=== PATIENT | female | born 1935 | race Hispanic/Latino ===

== ENCOUNTER → 2020-11-19 | Outpatient (CLI) | payer OTHER | END | disposition home or self-care (01) | LOC: OIH 14:59 | PROVIDERS: ATTEND Family Medicine | DX: Z01.818 Encounter for other preprocedural examination (principal); I12.9 Hypertensive chronic kidney disease with stage 1 through stage 4 chronic kidney disease, or unspecified chronic kidney disease; I70.0 Atherosclerosis of aorta; M47.815 Spondylosis without myelopathy or radiculopathy, thoracolumbar region | CPT/HCPCS: 71046 ==

== ENCOUNTER → 2021-03-30 | Outpatient (CLI) | payer OTHER ==
[~2021-03-30] MED LIST: ASPI-1197 PO; CYCL30DR OP; FERR324T10 PO; HYDR-4060 PO; PRAV40TA3 PO
== END | disposition home or self-care (01) ==
LOC: OIH 11:45
PROVIDERS: ATTEND Family Medicine
DX: M25.472 Effusion, left ankle (principal); M85.872 Other specified disorders of bone density and structure, left ankle and foot
CPT/HCPCS: 73610

== ENCOUNTER → 2023-08-30 | Outpatient (CLI) | payer OTHER | END | disposition home or self-care (01) | LOC: RAH 12:23 | PROVIDERS: ATTEND Family Medicine | DX: I08.3 Combined rheumatic disorders of mitral, aortic and tricuspid valves (principal); R01.1 Cardiac murmur, unspecified | CPT/HCPCS: 93306 ==